=== PATIENT | female | born 1985 | race Caucasian/White ===

== ENCOUNTER 2016-11-13 22:58 | Emergency (ER) | payer OTHER ==
[2016-11-13 23:41] LABS: BASOPHIL% 0.3 % (0-2.5); EOSINOPHIL# 0.1 X10e3 (0-0.7); EOSINOPHIL% 1.7 % (0.0-7.0); HEMOGLOBIN 13.4 gm/dL (12.0-16.0); LYMPHOCYTE% 23.1 % (17.0-45.0); MEAN CELL VOLUME 71.1 FL (83-96); MEAN CORPUSCULAR HEMOGLOBIN 22.2 PG (28-34); MEAN CORPUSCULAR HGB CONC 31.2 g/dL (30-36); MEAN PLATELET VOLUME 8.8 FL (6.5-11.5); MONOCYTE# 0.3 X10e3 (0-1.0); MONOCYTE% 3.6 % (3.0-12.0); NEUTROPHIL# 6.1 X10e3 (1.5-7.1); NEUTROPHIL% 71.3 % (40-75); PLATELET COUNT 258 X10e3 (140-420); RED BLOOD COUNT 6.05 X10e (3.90-5.30); RED CELL DISTRIBUTION WIDTH 14.2 % (11.0-15.5); WHITE BLOOD COUNT 8.5 X10e3 (4.0-10.5)
[2016-11-13 23:42] LABS: DIFF IND NO
[2016-11-14 00:02] LABS: ACETAMINOPHEN <10 ug/mL; ALBUMIN SERUM 5.2 g/dL (3.5-5.0); ALCOHOL BLOOD 136 mg/dL ([, 0]); ALKALINE PHOSPHATASE 65 U/L (32-92); ALT (SGPT) 21 U/L (10-40); AST (SGOT) 25 U/L (10-42); BILIRUBIN,TOTAL 0.3 mg/dL (0.2-2.0); BLOOD UREA NITROGEN 10 mg/dL (9-23); BUN/CREATININE RATIO 14.28; CALCIUM SERUM 9.4 mg/dL (8.4-10.2); CARBON DIOXIDE 25 mmol/L (22-31); CHLORIDE 107 mmol/L (100-111); CREATININE SERUM 0.7 mg/dL (0.6-1.4); GLOM FILT RATE Estimated 116.3 mL/min (>60); GLUCOSE FASTING 92 mg/dL (70-110); POTASSIUM 3.1 mmol/L (3.5-5.1); PROTEIN TOTAL SERUM 8.5 g/dL (6.0-8.3); SALICYLATE <4.0 mg/dL; SODIUM 144 mmol/L (135-145)
[2016-11-14 00:29] LABS: URINE SOURCE CLEAN CATCH
[2016-11-14 00:43] LABS: URINE APPEARANCE CLEAR; URINE BILIRUBIN NEG (NEG); URINE BLOOD NEG (NEG); URINE COLOR YELLOW; URINE GLUCOSE NEG (NEG); URINE KETONE NEG (NEG); URINE LEUKOCYTE ESTERASE NEG (NEG); URINE NITRATE NEG (NEG); URINE PROTEIN NEG (NEG); URINE SPECIFIC GRAVITY 1.005 (1.003-1.035); URINE UROBILINOGEN 0.2 MG/DL (NEG)
[2016-11-14 01:03] LABS: AMPHETAMINE NEG (NEG); BARBITURATES NEG (NEG); BENZODIAZEPINES NEG (NEG); COCAINE NEG (NEG); MARIJUANA NEG (NEG); OPIATES NEG (NEG); TRICYCLIC ANTIDEPRESSANTS NEG (NEG); U METHADONE NEG (NEG)
== END 2016-11-14 10:15 | disposition other institution (70) ==
LOC: CED 22:58
PROVIDERS: Emergency Medicine
DX: T54.91XA Toxic effect of unspecified corrosive substance, accidental (unintentional), initial encounter (principal); M32.9 Systemic lupus erythematosus, unspecified
CPT/HCPCS: 36415; 80053; 80307; 81003; 84703; 85025; 96361; 96374; 96375; 99285; G0480; J2060; J2405

== ENCOUNTER 2016-11-14 | Inpatient (IN) | payer MEDICAID ==
[~2016-11-14] VITALS: Ht 152.4 cm; Wt 63.5 kg
--- NOTE | ~2016-11-14 | PA ---
Unit #: [id number] #: [id number] Patient: ALEXX LAWRENCE [id number] [facility] [address] [place] [address] [id number] MR#: [id number] NAME: ALEXX LAWRENCE ROOM: P257 Age: 31 Sex: F Admission Date: 11/14/2016 : 1985 Date of Assessment: 11/15/2016 Attending Physician: Betty Cummings M.D. Admitting Physician: Betty Cummings M.D. Primary Care Physician: Primary Care Physician No PSYCHIATRIC ASSESSMENT DATE OF SERVICE 11/14/2016. IDENTIFYING DATA Ms. Doc Soni is a 31-year-old, single, female, who is a resident of [place], [place], and was self-referred to the hospital on a voluntary basis as a transfer from [facility]. CHIEF COMPLAINT "I overdosed on beers and Clorox with an intent to kill myself." HISTORY OF PRESENT ILLNESS Ms. Doc Soni is a 31-year-old female, who was hospitalized at [facility] after she presented with intentional overdose on 8 beers and a cup of Clorox with intent to kill herself and also had small superficial cuts on her wrist and reports that she does not want to be here anymore and would not disclose any reason behind her suicidal thoughts, though eventually she reports that she is tired of her ex- and reports that her ex keeps calling her and asking her for sex and is giving her problems and then she is also having issues with her friends, and she does not normally drink alcohol and reports increasing depression, anxiety, irritability, and feelings of hopelessness and helplessness, and suicidal ideations with intent and plan and attempt and as such, recommendation for inpatient level of care was made and once medically cleared, she was transferred to us. SUBSTANCE ABUSE HISTORY The patient denies any alcohol or drug abuse. PAST PSYCHIATRIC HISTORY The patient has not had any prior inpatient or outpatient psychiatric treatment. Review of the medical records indicate that currently she is not active in any treatment program, is not seeing a psychiatrist, and is not taking any psychotropic medications. PAST MEDICAL HISTORY Significant for lupus. ALLERGIES No known medication allergies. CURRENT MEDICATIONS Unit #: [id number] #: [id number] Patient: ALEXX LAWRENCE None. PERSONAL AND SOCIAL HISTORY A 31-year-old female, who reports that she is single, unemployed, and lives at home with her 2 children and has poor social support system. MENTAL STATUS EXAMINATION Young female who was casually dressed with fair personal hygiene, appears to be in no acute distress or discomfort. She was awake and alert on interaction with intact orientation to time, place, and person. Her mood was anxious and depressed with a congruent affect. Her speech was slow and restricted in content. Her thought processes were disorganized with some looseness of associations and flight of ideas and suicidal ideations. Her insight and judgment remain significantly impaired. DIAGNOSTIC IMPRESSION Psychiatric: Major depressive disorder, recurrent, moderate, without psychotic features. Medical: Lupus. Stressors: Moderate psychosocial stressors. TREATMENT PLAN 1. The patient has presented with history of mood disorder and substance abuse and has been decompensating and will need inpatient hospitalization for safety and stabilization. We will start her back on her home medications. We will adjust the medications and monitor response. 2. Supportive therapy was provided to the patient. 3. Safe, structured, and nourishing environment will be provided. ESTIMATED LENGTH OF STAY 5 to 7 days. ABILITY TO HELP SELF Limited. WILLINGNESS TO HELP SELF The patient appears to be willing to help self. STRENGTHS 1. Communicative. 2. Cooperative. PROBLEMS 1. Chronic dysphoric symptoms. 2. Poor social support system. DISCHARGE CRITERIA This will be contingent upon the patient's ability to show resolution of her depression and her ability to stay safe to herself, particularly after discharge from the hospital. Dictated by... Betty Cummings M.D. ZAIN/shakir TD: 11/15/2016 07:56 Unit #: [id number] #: [id number] Patient: ALEXX LAWRENCE JOB #: [id number] PSYCHIATRIC ASSESSMENT Page 1 of 1 X Betty Cummings MD PSYCHIATRIC ASSESSMENT
--- NOTE | ~2016-11-14 | PN ---
Unit #: [id number] #: [id number] Patient: ALEXX LAWRENCE [id number] [facility] [address] [place] [address] [id number] MR#: [id number] NAME: ALEXX LAWRENCE ROOM: P256 Age: 31 Sex: F Admission Date: 11/14/2016 : 1985 Attending Physician: Betty Cummings M.D. Admitting Physician: Betty Cummings M.D. Primary Care Physician: Primary Care Physician Sadie BRUNO PROGRESS NOTES DATE 11/16/2016 DISCUSSION Ms. Rossi is a 31-year-old female who was seen today and chart was reviewed and case was discussed with the staff. She apparently had seizure activity yesterday and code was called and she was medically treated. However, on evaluation by me this morning, patient was laying comfortably in her bed and inquired if she has any history of seizure disorder and she denies being an epileptic and having had a seizure before. She has also asked if she has been using any drugs out in the streets, specifically benzodiazepines as her drug screen has tested positive for benzodiazepines and she strongly denies being a drug addict or using any pills on the streets or prescribed any medications and when inquired and confronted about drug screen being positive for benzodiazepines, she denies having any knowledge of that and as such is denying any drug abuse or dependence or being prescribed any benzodiazepines or using any benzodiazepines on the street or having any history of withdrawal seizures or history of being an epileptic and as such we have not been able to start her on any detox protocol. Meanwhile, she has been exhibiting persistent depressive symptoms and does admit to drinking bleach in a suicide attempt but then refusing to take responsibility of her depression and suicidal behavior and rather just looking to be discharged from the hospital and as such remains a poor prognosis. MENTAL STATUS EXAMINATION Young female who was casually dressed with fair personal hygiene and appears to be in no acute distress or discomfort. She was awake and alert with impaired attention and concentration. Her mood was anxious with a congruent affect. Her speech is slow and restricted in content. She denies any current suicidal or homicidal ideations and also denies any auditory or visual hallucinations. Her insight and judgement remains slightly impaired. TREATMENT PLAN 1. Will continue on current medications and treatment protocol. Will monitor her response to the medications and make further adjustments as needed. 2. Will continue to follow up. Unit #: [id number] #: [id number] Patient: GRABIEL ROSSIALEXX Dictated by... Yassine Mercado/grover TD: 11/16/2016 17:20 JOB #: [id number] [facility] PROGRESS NOTES Page 1 of 1 X Betty Cummings MD X PROGRESS NOTE
--- NOTE | ~2016-11-14 | HP ---
Unit #: [id number] #: [id number] Patient: VONDA LAWRENCE [id number] [place] [address] [id number] MR#: [id number] NAME: VONDA LAWRENCE ROOM: P256 Age: 31 Sex: F Admission Date: 11/14/2016 : 1985 Attending Physician: Betty Cummings M.D. Admitting Physician: Betty Cummings M.D. Primary Care Physician: Primary Care Physician No HISTORY AND PHYSICAL HISTORY OF PRESENT ILLNESS Vonda is a 31 year old admitted to [address] [place] [address] with depression and after alleging that she drank a cup of Clorox. She was medically cleared at [facility] and then transported to [facility] for psychiatric care. PAST MEDICAL HISTORY Lupus by patient's report (?). PAST SURGICAL HISTORY Nothing reported. ALLERGIES No known drug allergies. SOCIAL HISTORY She does not smoke. Drinks alcohol on a regular basis, and denies illicit drug use. FAMILY HISTORY Medically noncontributory. REVIEW OF SYSTEMS CONSTITUTIONAL: No fever or chills. HEENT: Denies any sore throat, ear pain or runny nose. CARDIOVASCULAR: Denies chest pain, irregular heart rhythm or palpitations. CHEST: Denies shortness of breath or cough. No hemoptysis. GASTROINTESTINAL: Denies nausea, vomiting, diarrhea or chronic constipation. ENDOCRINE: Denies history of increased thirst or urination. No recent significant weight loss or gain. GENITOURINARY: Denies dysuria, frequency, or hematuria. SKIN: Denies any rashes. HEMATOLOGIC: Denies history of increased bleeding or bruising. MUSCULOSKELETAL: Denies any hot, swollen joints. No generalized muscle pain. NEUROLOGIC: Denies problems with vision or speech. No frequent, severe headaches. No numbness, tingling or weakness in any extremities. Denies loss of bladder or bowel control. CURRENT MEDICATIONS No orders received at the time of this dictation. Unit #: [id number] #: [id number] Patient: VONDA LAWRENCE PHYSICAL EXAMINATION GENERAL: Alert, well nourished. No apparent distress. VITAL SIGNS: Blood pressure 140/74, heart rate 80, respirations 16, and temperature 98.6. WEIGHT: 130. HEIGHT: 5 feet 2 inches. SKIN: Warm and dry without rash. She does have small linear very superficial scratches along her wrist. There is no increased redness, swelling, heat, or pus noted. HEENT: Normocephalic. TMs not viewed. Oral and nasal passages clear. Conjunctivae clear. PERRLA. EOMs intact. No signs of chemical burn to include redness or swelling is noted about her lips, gums, or tongue. NECK: Supple without lymphadenopathy or thyromegaly. HEART: Regular rate and rhythm without murmur. LUNGS: Clear. ABDOMEN: Soft, nontender. : Not done. EXTREMITIES: No evidence of cyanosis, clubbing or edema. Moves all without focal deficit. NEUROLOGICAL: Grossly within normal limits. Cranial Nerves: II: Visual melissa are intact. III, IV AND : Extraocular movements are intact. Pupils are equal, round and reactive to light. V: Facial sensation is grossly normal. VII: Facial movements and expression are normal. VIII: Auditory acuity grossly intact. IX, X: Uvula is midline. Phonation is normal. XI: Patient shrugs shoulders and turns head normally. XII: Tongue protrudes in the midline. Sensory and Motor Function: Sensory and motor sensation is grossly normal. Motor: moves all extremities well. Coordination: Gait is normal. Deep Tendon Reflexes: Intact. IMPRESSION Psychiatric admission. RECOMMENDATIONS PSYCHIATRIC: Per psychiatrist. MEDICAL: I see no contraindication to participate in this facility's activities. MEDICAL PROGNOSIS Good. MEDICAL CONDITION Stable. Dictated by... Gracie Salinas P.A.-C. for Yassine Valdez/tay TD: 12/15/2016 12:37 JOB #: [id number] Unit #: [id number] #: [id number] Patient: VONDA LAWRENCE HISTORY AND PHYSICAL Page 1 of 1 X Gracie Salinas HISTORY AND PHYSICAL
--- NOTE | ~2016-11-14 | DS ---
Unit #: [id number] #: [id number] Patient: ALEXX LAWRENCE [id number] [facility] [address] [place] [address] [id number] MR#: [id number] NAME: ALEXX LAWRENCE ROOM: P256 Age: 31 Sex: F Admission Date: 11/14/2016 : 1985 Discharge Date: 11/18/2016 Attending Physician: Betty Cummings M.D. Primary Care Physician: Primary Care Physician No DISCHARGE SUMMARY IDENTIFYING DATA Ms. Doc Soni is a 31-year-old female who was a resident of [place], [place] and was self-referred to the hospital on voluntary basis and was transferred from [facility]. DISCHARGE DIAGNOSES PSYCHIATRIC: Major depressive disorder, recurrent, moderate without psychotic features. MEDICAL: Lupus. STRESSORS: Mild psychosocial stressor. HISTORY OF PRESENT ILLNESS Please see initial psychiatric evaluation. PAST PSYCHIATRIC HISTORY Please see initial psychiatric evaluation. PAST MEDICAL HISTORY Please see initial psychiatric evaluation. HOSPITAL COURSE The [facility] and was oriented to the hospital environment. Routine p.r.n. medications were initiated and she was started back on home medication, Celexa 20 mg as an antidepressant was initiated. However, patient did have a seizure activity on the unit but then denied using any drugs or alcohol and having no history of substance abuse and not being an epileptic and as such no further adjustments were made and she was closely monitored and was taking her Celexa for depression and was tolerating it fairly well and was able to show a decent and therapeutic response and denying any suicidal ideations, intent or plan and was wanting to go home and was willing to continue treatment on outpatient basis and as such it was decided that she will be discharged. Will continue treatment on outpatient basis. DISCHARGE MEDICATIONS Celexa 20 mg daily for depression. CONDITION AT DISCHARGE Stable. Unit #: [id number] #: [id number] Patient: ALEXX LAWRENCE PROGNOSIS Fair. Dictated by... Betty Cummings M.D. IAA/grover TD: 11/18/2016 19:43 JOB #: [id number] DISCHARGE SUMMARY Page 1 of 1 X Betty Cummings MD DISCHARGE SUMMARY
--- NOTE | ~2016-11-14 | PN ---
Unit #: [id number] #: [id number] Patient: ALEXX LAWRENCE [id number] [facility] [address] [place] [address] [id number] MR#: [id number] NAME: ALEXX LAWRENCE ROOM: P256 Age: 31 Sex: F Admission Date: 11/14/2016 : 1985 Attending Physician: Betty Cummings M.D. Admitting Physician: Betty Cummings M.D. Primary Care Physician: Primary Care Physician Sadie BRUNO PROGRESS NOTES DATE OF SERVICE 11/17/2016 DISCUSSION Doc Soni is a 31-year-old female who was seen today. Chart was reviewed and case was discussed with the staff. She has been anxious, withdrawn, depressed, and rather seclusive to herself but has been calm and cooperative with treatment recommendations and has been taking the medications and tolerating them fairly well with no reported side effects. MENTAL STATUS EXAMINATION Young female who is casually dressed with fair personal hygiene, appears to be in no acute distress or discomfort. She was awake and alert with intact orientation. Her mood is anxious and depressed with congruent affect. She denies any suicidal or homicidal ideations. Her insight and judgment remain slightly impaired. TREATMENT PLAN 1. We will continue her on her current medications and treatment protocol. We will monitor her response to the medications and make further adjustments as needed. 2. We will continue to follow up. Dictated by... Betty Cummings M.D. IAA/janetg TD: 11/17/2016 12:22 JOB #: [id number] [facility] PROGRESS NOTES Page 1 of 1 X Betty Cummings MD PROGRESS NOTE
--- NOTE | ~2016-11-14 | PN ---
Unit #: [id number] #: [id number] Patient: ALEXX LAWRENCE [id number] [facility] [address] [place] [address] [id number] I MR#: [id number] NAME: ALEXX LAWRENCE ROOM: P257 Age: 31 Sex: F Admission Date: 11/14/2016 : 1985 Attending Physician: Betty Cummings M.D. Admitting Physician: Betty Cummings M.D. Primary Care Physician: Primary Care Physician No DAMION PROGRESS NOTES DATE 11/15/2016 DISCUSSION Ms. Roach is a 31-year-old female with mood disorder who was seen today and chart was reviewed and case was discussed with the staff. She was seen to be anxious, withdrawn, depressed and rather seclusive to herself and reports persistent depressive symptoms with severe hopelessness. Meanwhile, no agitation or aggression has been reported. MENTAL STATUS EXAMINATION Young female who was casually dressed with fair personal hygiene and appears to be in no acute distress or discomfort. She was awake and alert with intact orientation. Her mood was anxious with congruent affect. She denies any suicidal or homicidal ideation. Her insight and judgement remains slightly impaired. TREATMENT PLAN 1. Will continue on current medications and treatment protocol. Will recommend initiating antidepressant therapy. 2. Will continue to follow up. Dictated by... Yassine Mercado/grover TD: 11/15/2016 21:22 JOB #: [id number] [facility] PROGRESS NOTES Page 1 of 1 X Betty Cummings MD PROGRESS NOTE
[2016-11-15 10:05] LABS: URINE APPEARANCE CLOUDY; URINE BILIRUBIN NEG (NEG); URINE BLOOD NEG (NEG); URINE COLOR DK YELLOW; URINE GLUCOSE NEG (NEG); URINE KETONE NEG (NEG); URINE LEUKOCYTE ESTERASE NEG (NEG); URINE NITRATE NEG (NEG); URINE PROTEIN NEG (NEG); URINE SPECIFIC GRAVITY 1.033 (1.003-1.035); URINE UROBILINOGEN 0.2 MG/DL (NEG)
[2016-11-15 10:41] LABS: AMPHETAMINE NEG (NEG); BARBITURATES NEG (NEG); BENZODIAZEPINES POS (NEG); COCAINE NEG (NEG); MARIJUANA NEG (NEG); OPIATES NEG (NEG); TRICYCLIC ANTIDEPRESSANTS NEG (NEG); U METHADONE NEG (NEG)
[2016-11-16 09:56] LABS: BASOPHIL% 0.4 % (0-2.5); EOSINOPHIL# 0.4 X10e3 (0-0.7); EOSINOPHIL% 5.1 % (0.0-7.0); HEMATOCRIT 35.6 % (35.0-45.0); HEMOGLOBIN 10.9 gm/dL (12.0-16.0); LYMPHOCYTE# 2.6 X10e3 (1.0-3.5); LYMPHOCYTE% 35.6 % (17.0-45.0); MEAN CELL VOLUME 71.8 FL (83-96); MEAN CORPUSCULAR HEMOGLOBIN 22.1 PG (28-34); MEAN CORPUSCULAR HGB CONC 30.7 g/dL (30-36); MEAN PLATELET VOLUME 9.2 FL (6.5-11.5); MONOCYTE# 0.3 X10e3 (0-1.0); MONOCYTE% 4.2 % (3.0-12.0); NEUTROPHIL# 3.9 X10e3 (1.5-7.1); NEUTROPHIL% 54.7 % (40-75); PLATELET COUNT 208 X10e3 (140-420); RED BLOOD COUNT 4.95 X10e (3.90-5.30); RED CELL DISTRIBUTION WIDTH 14.1 % (11.0-15.5); WHITE BLOOD COUNT 7.2 X10e3 (4.0-10.5)
[2016-11-16 09:59] LABS: ALBUMIN SERUM 3.6 g/dL (3.5-5.0); BUN/CREATININE RATIO 22.5; CALCIUM SERUM 9.1 mg/dL (8.4-10.2); CREATININE SERUM 0.8 mg/dL (0.6-1.4); POTASSIUM 4.3 mmol/L (3.5-5.1); PROTEIN TOTAL SERUM 6.2 g/dL (6.0-8.3)
[2016-11-16 10:01] LABS: DIFF IND NO
== END 2016-11-18 16:00 | disposition home or self-care (01) | DRG 885 ==
LOC: P2L 10:49 → POF 10:49 → P2L 13:28
PROVIDERS: Psychiatry & Neurology Psychiatry
DX: F33.1 Major depressive disorder, recurrent, moderate (principal); M32.9 Systemic lupus erythematosus, unspecified; R45.851 Suicidal ideations
CPT/HCPCS: 80053; 80307; 81003; 84703; 85025

== ENCOUNTER 2016-12-01 17:52 | Emergency (ER) | payer OTHER ==
[~2016-12-01] VITALS: Ht 157.5 cm; Wt 59.0 kg
[2016-12-01 19:41] LABS: URINE APPEARANCE CLOUDY; URINE BILIRUBIN NEG (NEG); URINE BLOOD 2+ (NEG); URINE COLOR YELLOW; URINE GLUCOSE NEG (NEG); URINE KETONE NEG (NEG); URINE LEUKOCYTE ESTERASE 3+ (NEG); URINE NITRATE NEG (NEG); URINE PH 6.5 (5-8); URINE PROTEIN 1+ (NEG); URINE SPECIFIC GRAVITY 1.008 (1.003-1.035); URINE UROBILINOGEN 0.2 MG/DL (NEG)
[2016-12-01 19:45] LABS: CULTURE INDICATED? YES; URINE BACTERIA AUWI 4+ (NEGATIVE); URINE SQUAMOUS EPITHELIAL CELL NONE SEEN /[HPF]; UWBCS1 AUWI 100-200 (0-5)
[2016-12-05 13:56] LABS: CHLAMYDIA TRACH Detected (Not Detected); N GONOR Not Detected (Not Detected)
== END 2016-12-01 20:40 | disposition home or self-care (01) ==
LOC: CFTX 17:52 → CED 17:52 → CFTX 19:33
PROVIDERS: Nurse Practitioner Family
DX: N39.0 Urinary tract infection, site not specified (principal)
CPT/HCPCS: 81003; 84703; 87086; 87088; 87186; 87491; 87591; 87808; 87905; 96372; 99284; J0696